=== PATIENT | female | born 1955 | race Caucasian/White ===

== ENCOUNTER → 2017-03-31 | Outpatient (CLI) | payer BC | LOC: MC.RAD 07:00 | DX: Z12.31 Encounter for screening mammogram for malignant neoplasm of breast (principal) ==

== ENCOUNTER 2017-11-16 07:22 | Emergency (ER) | payer BC ==
[~2017-11-16] VITALS: Ht 160 cm; Wt 59.1 kg
[2017-11-16 07:27] VITALS: BP 137/66; TEMP 98.3
[2017-11-16 08:30] VITALS: PULSE 61
== END 2017-11-16 08:29 | disposition home or self-care (01) ==
LOC: COL.ER 07:22
DX: S60.221A Contusion of right hand, initial encounter (principal); Z90.89 Acquired absence of other organs; W18.09XA Striking against other object with subsequent fall, initial encounter

== ENCOUNTER → 2018-04-02 | Outpatient (CLI) | payer BC | LOC: MC.RAD 11:34 | DX: Z12.31 Encounter for screening mammogram for malignant neoplasm of breast (principal) ==

== ENCOUNTER → 2019-04-20 | Outpatient (CLI) | payer MEDICARE, BC | LOC: MC.RAD 04-05 07:15 | DX: Z12.31 Encounter for screening mammogram for malignant neoplasm of breast (principal) ==

== ENCOUNTER → 2020-04-24 | Outpatient (CLI) | payer MEDICARE, BC | LOC: MC.RAD 07:45 | DX: Z12.31 Encounter for screening mammogram for malignant neoplasm of breast (principal) ==

== ENCOUNTER → 2021-04-25 | Outpatient (CLI) | payer MEDICARE, BC | LOC: MC.RAD 06:52 | DX: Z12.31 Encounter for screening mammogram for malignant neoplasm of breast (principal) ==